=== PATIENT | male | born 1975 | race Two or more races ===

== ENCOUNTER → 2024-03-02 | Outpatient (CLI) | payer BC, SELFPAY ==
--- NOTE | 2024-03-02 16:59 | XR_ITS ---
Examination: Right elbow 3 views Technique: Elbow AP, oblique, lateral 3 views Exam date and time: March 02, 2024 1724 hours INDICATIONS: Right elbow pain and stiffness beginning one month ago. FINDINGS: Minimal osteophyte formation coronoid process of the ulna No fracture or dislocation No elbow effusion IMPRESSION: Minimal osteoarthritis.
== END | disposition home or self-care (01) ==
PROVIDERS: PCP Internal Medicine; Referring Provider Internal Medicine; Visit Provider Internal Medicine
DX: M19.021 Primary osteoarthritis, right elbow (principal)
CPT/HCPCS: 73080

== ENCOUNTER → 2024-03-31 | Outpatient (BNVA) | payer BC, SELFPAY | END | disposition home or self-care (01) | PROVIDERS: PCP Internal Medicine; Referring Provider Internal Medicine; Visit Provider Urology | DX: N40.1 Benign prostatic hyperplasia with lower urinary tract symptoms (principal); N13.8 Other obstructive and reflux uropathy; N52.9 Male erectile dysfunction, unspecified; I10 Essential (primary) hypertension; E66.01 Morbid (severe) obesity due to excess calories; Z68.41 Body mass index [BMI] 40.0-44.9, adult; Z86.16 Personal history of COVID-19 | CPT/HCPCS: 81003; 99212; G0463 ==

== ENCOUNTER → 2024-06-13 | Outpatient (BNVA) | payer BC, SELFPAY | END | disposition home or self-care (01) | PROVIDERS: PCP Internal Medicine; Referring Provider Internal Medicine; Visit Provider Urology | DX: N40.1 Benign prostatic hyperplasia with lower urinary tract symptoms (principal); I10 Essential (primary) hypertension | CPT/HCPCS: 76872 ==

== ENCOUNTER → 2024-07-29 | Outpatient (CLI) | payer BC, SELFPAY ==
--- NOTE | 2024-07-29 07:00 | XR_ITS ---
Examination: MRI right elbow, without contrast Date and time of exam: July 29, 2024 0719 hours INDICATIONS: Lifting injury to the elbow with increasing pain and swelling 1 year Technique: Multiple axial sagittal and coronal images of the right elbow have been obtained with the Siemens high-resolution 1.5 [place] MRI scanner. Images obtained include T2-weighted fat-suppressed sagittal sections, TR 3500, TE 46, T2 weighted coronal fat suppressed images, TR 3050, TE 84, T2-weighted transverse fat suppressed images, TR 3260, TE 63, proton density transverse images, TR 4720 TE 46, and T1 weighted coronal images, TR 560, TE 13. Findings: No occult fracture or avascular necrosis No bone contusion Marked thickening and increased signal with partial tear of the common extensor tendon Marked thickening of the radial collateral ligament Medial ligamentous complex intact No ossified joint bodies Triceps tendon intact Intact long head of the biceps insertion into the radial tuberosity IMPRESSION: Partial tear and marked thickening and stranding involving the common extensor tendon Significant strain of the radial collateral ligament
== END | disposition home or self-care (01) ==
LOC: SMRI 06:53
PROVIDERS: PCP Internal Medicine; Referring Provider Internal Medicine; Visit Provider Internal Medicine
DX: S56.511A Strain of other extensor muscle, fascia and tendon at forearm level, right arm, initial encounter (principal); X58.XXXA Exposure to other specified factors, initial encounter; M24.221 Disorder of ligament, right elbow
CPT/HCPCS: 73221